=== PATIENT | male | born 1995 | race Caucasian/White ===

== ENCOUNTER 2018-11-20 17:53 | Emergency (ER) | payer OTHER, MEDICAID, SELFPAY ==
[2018-11-20 17:58] VITALS: BP 139/68; PULSE 74; RESP 18; TEMP 36.5; O2SAT 99
--- NOTE | 2018-11-20 18:03 | ED.EXTPRO ---
HPI - Extremity Problem <SAM Baker - Last Filed: 11/20/18 21:49> General Chief complaint: Extremity Problem,Nontraumatic Stated complaint: RIGHT 1ST TOE PAIN Time Seen by Provider: 11/20/18 18:01 Source: patient Mode of arrival: ambulatory Limitations: no limitations History of Present Illness HPI Narrative: 23-year-old healthy male that is nonsmoker here for complaint of pain and redness to his left great toe. He states he has an ingrown toe. He states he has had this ingrown toe for the last few years. He denies any trauma to the area. He states that he has had this in the for and had have toenail excision done in the past. He states he has had some bleeding and also some purulent drainage. No fevers no chills. Increased pain with ambulation or pressure on the great toe. No other concerns or complaints at this timeframe. Related Data Previous Rx's Medication Instructions Recorded clindamycin HCl 300 mg PO QID #28 cap 11/20/18 mupirocin 1 applictn TOP BID #15 gram 11/20/18 Allergies Allergy/AdvReac Type Severity Reaction Status Date / Time No Known Drug Allergies Allergy Verified 11/20/18 19:36 Review of Systems <SAM Baker - Last Filed: 11/20/18 21:49> Constitutional Denies chills, Denies fever(s), Denies lethargy and Denies weakness Eyes Denies change in vision, Denies eye discharge, Denies irritation and Denies loss of vision Cardiovascular Denies chest pain, Denies irregular heart rhythm, Denies lightheadedness, Denies palpitations, Denies dyspnea, Denies dyspnea on exertion and Denies orthopnea Respiratory Denies cough, Denies dyspnea, Denies dyspnea on exertion and Denies wheezing Gastrointestinal Gastrointestinal: Denies abdominal pain, Denies change in bowel habits, Denies diarrhea, Denies nausea and Denies vomiting Genitourinary Denies hematuria, Denies flank pain, Denies urinary incontinence and Denies urinary urgency Musculoskeletal Comments: Left great toe pain and ingrown toenail Integumentary/Breasts Denies pruritus, Denies erythema, Denies rash and Denies wounds Neurologic Denies loss of vision and Denies weakness Endocrine Denies palpitations Hematologic/Lymphatic Denies easy bruising Allergic/Immunologic Denies wheezing PFSH <SAM Baker - Last Filed: 11/20/18 21:49> Social History Smoking Status: Never smoker Social History Smoking Status: Never smoker Exam <SAM Baker - Last Filed: 11/20/18 21:49> Initial Vital Signs Initial Vital Signs: Vital Signs Temperature 97.7 F 11/20/18 17:58 Pulse Rate 74 11/20/18 17:58 Respiratory Rate 18 11/20/18 17:58 Blood Pressure 139/68 11/20/18 17:58 Pulse Oximetry 99 11/20/18 17:58 Const General: cooperative and well developed Nutritional Appearance: well nourished Orientation: alert, awake, oriented x3 and not confused HENMT Mouth: oral mucosae normal and moist mucous membranes Eyes General: appearance normal, both eyes and all related structures Eyelids: eyelids normal Conjunctivae: conjunctivae normal Sclera: sclerae normal Pupils: PERRL EOM: EOM intact bilaterally Resp Effort & Inspection: normal respiratory effort, able to speak in complete sentences, no respiratory distress and no use of accessory muscles Auscultation: clear to auscultation bilaterally, no rales, no rhonchi and no wheezes Cardio Rate: regular rate Rhythm: regular rhythm Heart Sounds: no click, no gallops, no murmurs and no rubs Pulses: normal peripheral pulses Skin General: no rashes or lesions noted, No jaundice and No petechiae Neuro General: alert, oriented x3, gait normal and no focal motor deficits Speech: speech normal Extrem Other: Erythema and swelling to the medial nail bed and a fold of the left great toe. Small amount of purulent drainage. Distal sensation is intact. Full range of motion. Distal cap refill less than 2 sec. <Stephanie Somers MD - Last Filed: 11/20/18 22:10> Initial Vital Signs Initial Vital Signs: Vital Signs Temperature 97.7 F 11/20/18 17:58 Pulse Rate 74 11/20/18 17:58 Respiratory Rate 18 11/20/18 17:58 Blood Pressure 139/68 11/20/18 17:58 Pulse Oximetry 99 11/20/18 17:58 Procedures <SAM Baker - Last Filed: 11/20/18 21:49> [facility] [place] [facility] [place] Name of Procedure: Left great toenail wedge excision to medial toenail. Side (if applicable): left Location: Left great toe Technique/Description of procedure performed: Left great toe was provided local anesthesia with digital block. Medial toe nail excision was completed with no complications. Bleeding stopped with direct pressure. No silver nitrate was needed. Wound dressed with antibiotic ointment and a dressing. Patient tolerated well no complications. Patient tolerated procedure: Well Complications: none Course <SAM Baker - Last Filed: 11/20/18 21:49> Orders Ordered: Discontinued Medications Lorazepam (Ativan) 1 mg PO NOW ONE Stop: 11/20/18 19:28 Last Admin: 11/20/18 19:37 Dose: 1 mg Vital Signs - 8 hr 11/20/18 17:58 11/20/18 20:15 Temperature 97.7 F Pulse Rate 74 82 Respiratory Rate 18 Blood Pressure 139/68 118/65 Pulse Oximetry 99 98 <Stephanie Somers MD - Last Filed: 11/20/18 22:10> Orders Ordered: Discontinued Medications Lorazepam (Ativan) 1 mg PO NOW ONE Stop: 11/20/18 19:28 Last Admin: 11/20/18 19:37 Dose: 1 mg Vital Signs - 8 hr 11/20/18 17:58 11/20/18 20:15 Temperature 97.7 F Pulse Rate 74 82 Respiratory Rate 18 Blood Pressure 139/68 118/65 Pulse Oximetry 99 98 MDM - Extremity (Nontraumatic) <SAM Baker - Last Filed: 11/20/18 21:49> MDM Narrative Medical decision making narrative: Toenail wedge excision was performed today in the emergency room to correct ingrown toenail. Dress wound daily mupirocin ointment and a dressing as directed. He is placed on clindamycin due to amount of redness to the medial aspect of the left great toe. Follow up with primary care provider next week. [id number] Tylenol Motrin as needed for any discomfort. For any worsening symptoms return to the emergency room. Discharge Plan Departure Patient Disposition: Home Clinical Impression: Onychocryptosis Discharge Date/Time: 11/20/18 20:16 Interventions: ED Discharge Assessment Last Done: 11/20/18 20:15 Instructions: DI for Ingrown Toenail Removal Activity Restrictions/Additional Instructions: Toenail wedge excision was completed today in the emergency room. You are prescribed a topical antibiotic and an oral antibiotic. Dress wound with antibiotic ointment and a dressing as directed. Use oral antibiotic as directed. [id number] Tylenol or Motrin as needed for discomfort. Follow up with primary care provider next week. For any worsening symptoms return to the emergency room. Prescriptions: New clindamycin HCl 300 mg capsule 300 mg PO QID Qty: 28 RF: 0 mupirocin 2 % ointment 1 applictn TOP BID Qty: 15 RF: 0 Discontinued clindamycin HCl 300 MG capsule 300 mg PO Q6H Qty: 28 RF: 0 Referrals: [facility] [Provider Group]
[2018-11-20] MEDS: LORazepam 0.5 MG TABLET 1 MG PO (19:37)
[2018-11-20 20:15] VITALS: BP 118/65; PULSE 82; O2SAT 98
== END 2018-11-20 20:16 | disposition home or self-care (01) ==
PROVIDERS: Emergency Provider Nurse Practitioner Family
DX: L60.0 Ingrowing nail (principal)
CPT/HCPCS: 11765; 96374; 99283; 99284

== ENCOUNTER 2021-07-07 18:37 | Emergency (ER) | payer OTHER, SELFPAY ==
[2021-07-07 18:46] VITALS: BP 135/75; PULSE 85; RESP 20; TEMP 36.9; O2SAT 100; BMI 20.7
[2021-07-07 19:20] LABS: COVID19 -Nasal RAPID Negative (Negative)
[2021-07-07 21:12] VITALS: BP 124/76; PULSE 80; O2SAT 100
[2021-07-07 21:30] VITALS: PULSE 66; O2SAT 97
[2021-07-07 22:00] VITALS: PULSE 69; O2SAT 97
[2021-07-07 22:30] VITALS: PULSE 76; O2SAT 97
--- NOTE | 2021-07-07 22:36 | ED.URI ---
HPI - URI/Sore Throat General Chief Complaint: Upper Respiratory Symptoms Stated Complaint: Fever,Headache,Eyes Hurt,Mild Cough Time Seen by Provider: 07/07/21 22:29 Source: patient Mode of arrival: Ambulatory Limitations: no limitations History of Present Illness HPI Narrative: 25-year-old gentleman with no significant medical history presents with 24 hours of headache fever sinus pressure, nausea, mild cough. He has noticed severe fatigue for a week. Related Data Previous Rx's Medication Instructions Recorded clindamycin HCl 300 mg capsule 300 mg PO QID #28 cap 11/20/18 mupirocin 2 % topical ointment 1 applictn TOP BID #15 gram 11/20/18 Allergies Allergy/AdvReac Type Severity Reaction Status Date / Time Penicillins Allergy Verified 07/07/21 18:45 Sulfa (Sulfonamide Allergy Verified 07/07/21 18:45 Antibiotics) Review of Systems Review of Systems Narrative: Remainder of complete review of systems is otherwise unremarkable except for that included in the HPI. Patient History Social History Smoking Status: Never smoker Smoking Status: Never smoker alcohol intake frequency: 0-2 drinks per day Substance Use Type: does not use Exam Narrative Exam Narrative: General: Healthy appearing, in no acute distress. Able to give a complete and coherent history. Well-nourished well-developed HEENT: Moist mucous membranes, normal sclera with reactive pupils, irritated posterior pharynx without exudate. Mild cervical adenopathy Respiratory: Lungs are clear to auscultation, no wheezing no rales no rhonchi. Full and symmetrical air movement Cardiac: Regular rate and rhythm no murmurs no bruits Abdomen: Soft, nontender, good bowel tones, no flank pain Skin: Warm and dry, no rashes Neurologic: Grossly neurologically intact with no obvious asymmetries or abnormalities Extremities: No trauma, well perfused Psych: Cooperative, appropriate insight and affect Initial Vital Signs Initial Vital Signs: Vital Signs Temperature 98.4 F 07/07/21 18:46 Pulse Rate 85 07/07/21 18:46 Respiratory Rate 20 07/07/21 18:46 Blood Pressure 135/75 07/07/21 18:46 Pulse Oximetry 100 07/07/21 18:46 Course Orders Ordered: ED Orders 07/07/21 18:50 COVID19 -Nasal swab/Pre-Proc Stat Vital Signs Vital signs: Vital Signs - 8 hr 07/07/21 18:46 07/07/21 21:12 07/07/21 21:30 Temperature 98.4 F Pulse Rate 85 80 66 Respiratory Rate 20 Blood Pressure 135/75 124/76 Pulse Oximetry 100 100 97 07/07/21 22:00 Temperature Pulse Rate 69 Respiratory Rate Blood Pressure Pulse Oximetry 97 MDM - URI/Sore Throat Lab Data Labs: Lab Results 07/07/21 Range/Units 18:50 SARS-CoV-2 (PCR) Negative (Negative) MDM Narrative Medical decision making narrative: 25-year-old gentleman with symptoms of mild upper respiratory infection without presence of COVID-19. Safe for home discharge Discharge Plan Departure Patient Disposition: Home Clinical Impression: Viral infection Instructions: DI for Viral Upper Respiratory Infection -- Adult Activity Restrictions/Additional Instructions: Thank you for coming in today You do not have COVID You likely due have rhino virus, we have been seeing quite a bit of this over the last week with very similar symptoms. If you have worsening fevers, shortness of breath or new symptoms please feel free to be re-evaluated Prescriptions: No Action clindamycin HCl 300 mg capsule 300 mg PO QID Qty: 28 RF: 0 mupirocin 2 % ointment 1 applictn TOP BID Qty: 15 RF: 0
[2021-07-07 22:43] VITALS: BP 103/59; PULSE 73; O2SAT 98
== END 2021-07-07 22:46 | disposition home or self-care (01) ==
PROVIDERS: Emergency Provider Emergency Medicine
DX: J06.9 Acute upper respiratory infection, unspecified (principal); Z20.822 Contact with and (suspected) exposure to COVID-19
CPT/HCPCS: 87635; 99281; 99282; C9803

== ENCOUNTER 2021-08-03 15:36 | Emergency (ER) | payer OTHER, SELFPAY ==
[2021-08-03 16:06] VITALS: BP 134/92; PULSE 81; RESP 17; TEMP 36.9; O2SAT 98; BMI 20.2
[2021-08-03 16:35] LABS: COVID19 -Nasal RAPID Negative (Negative)
--- NOTE | 2021-08-04 04:48 | ED_ITS ---
HPI - URI/Sore Throat General Chief Complaint: Upper Respiratory Symptoms Stated Complaint: wants covid test Time Seen by Provider: 08/03/21 17:54 Source: patient Mode of arrival: Ambulatory History of Present Illness HPI Narrative: 26-year-old male nonsmoker with history of anxiety presents with the chief complaint of wanting a COVID test. He denies any symptoms such as headache, sore throat, cough or shortness of breath. He states that he was exposed to someone that was found to be positive for COVID on Saturday (5 days ago) and needs a test. He has not been immunized. Related Data Home Medications Medication Instructions Recorded Confirmed No Known Home Medications 08/03/21 08/03/21 Allergies Allergy/AdvReac Type Severity Reaction Status Date / Time Penicillins Allergy Verified 08/03/21 16:09 Sulfa (Sulfonamide Allergy Verified 08/03/21 16:09 Antibiotics) Review of Systems Review of Systems Narrative: GENERAL: Denies chills, fatigue, malaise, fever, sweats. HEENT: Denies sinus pain, ear pain, sore throat, difficulty swallowing, dizziness. RESPIRATORY: Denies dyspnea, cough, wheezing, hemoptysis, sputum. CARDIOVASCULAR: Denies chest pain, palpitations, orthopnea, edema, GASTROINTESTINAL: Denies nausea, vomiting, abdominal pain, diarrhea, constipation, melena. : Denies dysuria, frequency, incontinence, hematuria, urinary retention. MUSCULOSKELETAL: denies weakness, joint pain, or bony pain SKIN: Denies rash, skin lesions, or other NEUROLOGIC: Denies weakness, headache, numbness, change in speech, confusion, seizures, incoordination. PSYCHIATRIC: No concerning psychosocial issues. 12 point review of systems is negative except for those stated above Patient History Social History Smoking Status: Never smoker Smoking Status: Never smoker alcohol intake frequency: holidays/special occasions only Substance Use Type: does not use Exam Narrative Exam Narrative: GEN: AOx3 and in mild distress EYES: Pupils are equal, round, and reactive to light and accommodation. Extraoccular muscles are intact bilaterally. There is no subconjunctival hemorrhage or exudate. CHEST: Lungs are clear to auscultation bilaterally and free of wheezes, rales, or rhonchi. Heart rate is regular rhythm, there are no murmurs, clicks, rubs, or gallops. There is no chest wall tenderness. ABD: Abdomen is soft and nontender. There is no guarding or rebound. Bowel sounds are normal in all 4 quadrants. There is no mass or organomegaly. EXT: Full painless ROM of all extremities with no loss of sensation or strength. SKIN: Warm, pink, and dry. No erythema or rash Initial Vital Signs Initial Vital Signs: Vital Signs Temperature 98.4 F 08/03/21 16:06 Pulse Rate 81 08/03/21 16:06 Respiratory Rate 17 08/03/21 16:06 Blood Pressure 134/92 H 08/03/21 16:06 Pulse Oximetry 98 08/03/21 16:06 MDM - URI/Sore Throat Lab Data Labs: Lab Results 08/03/21 Range/Units 16:04 SARS-CoV-2 (PCR) Negative (Negative) Discharge Plan Departure Patient Disposition: Home Clinical Impression: Upper respiratory infection Instructions: Coronavirus Disease 2019 Activity Restrictions/Additional Instructions: *You have been diagnosed with [mild respiratory symptoms after exposure to COVID. Your COVID test is negative] *What to do: *Please continue to take your regular medications as directed. [ ] New medication prescriptions sent to your pharmacy: [ ] [ ] New medication written as a paper prescription [x ] No new medications given *Please follow up with your primary care provider in 2-3 days, call for an appointment. Let them know you were seen in the Emergency Department and that we ask that you be seen in follow up. We will electronically transmit a record of today's note if your PCP is in our system *If you do not have a primary care provider please contact the [facility] Resource line at [phone]. They will ask some questions about your medical history and help get you set up with a doctor in the community. *Return to Emergency Department if you should have any new, worsening or concerning symptoms, such as [fever greater than 101 F, shaking chills, worsening pain, persistent vomiting or other bothersome symptoms] Prescriptions: No Action No Known Home Medications 0RF
== END 2021-08-03 18:26 | disposition home or self-care (01) ==
PROVIDERS: Emergency Medicine; Emergency Provider Emergency Medicine
DX: J06.9 Acute upper respiratory infection, unspecified (principal); Z20.822 Contact with and (suspected) exposure to COVID-19
CPT/HCPCS: 87635; 99281; 99282; C9803

== ENCOUNTER 2023-02-23 17:52 | Emergency (ER) | payer OTHER, SELFPAY ==
--- NOTE | 2023-02-23 18:02 | DI.RAD.S_ITS ---
PROCEDURE: XR WRIST RT MIN 3V INDICATIONS: pain after a fall TECHNIQUE: 4 views of the wrist were acquired. COMPARISON: None. FINDINGS: Bones: No fractures or dislocations. No suspicious bony lesions. Scaphoid view: Unremarkable Soft tissues: No suspicious soft tissue calcifications. IMPRESSION: Unremarkable right wrist radiographs Approved by: Geronimo Mulligan M.D. on 02/23/2023 at 17:58
[2023-02-23 18:10] VITALS: BP 130/81; PULSE 72; RESP 16; TEMP 36.6; O2SAT 99; BMI 20.7
--- NOTE | 2023-02-23 19:03 | ED.GENADULT ---
HPI - General Adult General Chief complaint: Extremity Injury, Upper Stated complaint: R wrist pain after fall Time Seen by Provider: 02/23/23 18:47 History of Present Illness HPI narrative: Otherwise healthy 27-year-old gentleman was at work today when out to the outside freezer to grab some supplies and ended up slipping on wet pavement. Fell onto his right outstretched hand has significant wrist pain some abrasions over the forearm on the right side and a minor abrasion to the right hip. He was able to return to work but the wrist pain has been getting progressively worse over the last couple of hours. He comes in for further evaluation Related Data Home Medications Medication Instructions Recorded Confirmed No Known Home Medications 08/03/21 08/03/21 Allergies Allergy/AdvReac Type Severity Reaction Status Date / Time Penicillins Allergy Verified 08/03/21 16:09 Sulfa (Sulfonamide Allergy Verified 08/03/21 16:09 Antibiotics) Review of Systems Review of Systems Narrative: Pertinent positive and negative findings as per HPI Patient History Social History Smoking Status: Never smoker Smoking Status: Never smoker alcohol intake frequency: holidays/special occasions only Substance Use Type: does not use Exam Initial Vital Signs Initial Vital Signs: Vital Signs Temperature 97.8 F 02/23/23 18:10 Pulse Rate 72 02/23/23 18:10 Respiratory Rate 16 02/23/23 18:10 Blood Pressure 130/81 02/23/23 18:10 Pulse Oximetry 99 02/23/23 18:10 Oxygen Delivery Method Room Air 02/23/23 18:10 General: Alert appropriate in no acute distress Respiratory: Able to speak in full sentences, no obvious respiratory distress Skin: No obvious rashes, warm and dry Neurologic: Grossly intact no obvious asymmetries or abnormalities Psych: appropriate insight and affect, cooperative Extremity: Tenderness on the volar surface of the right wrist without significant hematoma or abrasion. He does not have snuffbox tenderness. Does have full range of motion that is tender but able to be completed. There are no elbow or shoulder abnormalities. Minor abrasions on the volar surface of the forearm and minor abrasion on the outer right thigh. No other injuries appreciated Course Orders Ordered: ED Orders 02/23/23 18:02 XR wrist RT min 3V Stat Vital Signs Vital signs: Vital Signs - 8 hr 02/23/23 18:10 Temperature 97.8 F Pulse Rate 72 Respiratory Rate 16 Blood Pressure 130/81 Pulse Oximetry 99 Oxygen Delivery Method Room Air Medical Decision Making MDM Narrative Medical decision making narrative: CC: Fall on outstretched arm, acute wrist pain. This is a new problem uncertain prognosis Data collected from: patient, Differential considered: Wrist fracture, wrist sprain, scaphoid fracture, other upper extremity injury Exam documented above, pertinent findings include: Lab Test are not indicated today Imaging studies independently reviewed: X-ray of the right wrist does not show any acute fractures Treatment: Right wrist splint is placed. Velcro adjustments are reviewed with the patient. He is neurovascularly intact after splint placement Oral ibuprofen and Tylenol Discussion: Acute wrist sprain, discussed use of wrist splint for a week and then as needed after that. Follow-up with orthopedics if symptoms are not improving, use of ibuprofen and Tylenol. L and I forms are filled out. Will recommend limited duty for a week to include any activities he is able to do with the wrist splint in place. Questions are answered he is safe for discharge home Discharge Plan Departure Patient Disposition: Home Clinical Impression: Sprain of right wrist Qualifiers: Encounter type: initial encounter Qualified Code(s): S63.501A - Unspecified sprain of right wrist, initial encounter Abrasion of forearm, right Qualifiers: Encounter type: initial encounter Qualified Code(s): S50.811A - Abrasion of right forearm, initial encounter Abrasion of thigh, right Qualifiers: Encounter type: initial encounter Qualified Code(s): S70.311A - Abrasion, right thigh, initial encounter Instructions: DI for Wrist Sprain Activity Restrictions/Additional Instructions: Thank you for coming in today Fortunately, your x-rays do not show any acute fractures. There is some swelling around your wrist that corresponds with the pain and the acute sprain With the abrasions on your forearm in your hip, keep the areas clean. Anything that is slightly red can have Band-Aid and some antibiotic ointment. Using 400 mg of ibuprofen (2 [id number] pills) and 1 Tylenol every 6 hours can be very helpful in controlling pain. In terms of work, I am going to suggest that you are able to do anything at work that you can physically do with the wrist splint in place. If you find that you are getting worse or have new complaints or concerns please contact [facility] at [phone] Your L&I forms have been filled out and submitted. Prescriptions: No Action No Known Home Medications Stand Alone Forms: Patient Portal/API, Work Release Note
[2023-02-23] MEDS: ACETAMINOPHEN 325 MG TABLET 650 MG PO (19:17)
[2023-02-23] MEDS: IBUPROFEN 400 MG TABLET PO (19:18)
== END 2023-02-23 19:23 | disposition home or self-care (01) ==
PROVIDERS: Emergency Provider Emergency Medicine
DX: S63.501A Unspecified sprain of right wrist, initial encounter (principal); S50.811A Abrasion of right forearm, initial encounter; S70.311A Abrasion, right thigh, initial encounter; W01.0XXA Fall on same level from slipping, tripping and stumbling without subsequent striking against object, initial encounter; Y99.0 Civilian activity done for income or pay
CPT/HCPCS: 73110; 99283; 99284